=== PATIENT | male | born 1970 | race Caucasian/White ===

== ENCOUNTER 2019-04-12 09:46 | Inpatient (IN) | payer BC ==
[2019-04-12] MEDS ORDERED: DOCUSATE SODIUM 100 MG CAP PO (11:30)
[2019-04-12] MEDS ORDERED: ONDANSETRON 4 MG INJ IV (11:30)
[2019-04-12] MEDS ORDERED: VANCOMYCIN IV PER PHARMACY XX (11:30)
[2019-04-12] MEDS ORDERED: KETOROLAC 15 MG INJ IV (11:30)
[2019-04-12] MEDS ORDERED: NACL 0.9% 3 ML SYG IV (11:30)
[2019-04-12] MEDS ORDERED: ACETAMINOPHEN 325 MG TAB PO (11:30)
[2019-04-12] MEDS: CEFEPIME 1GM/50 ML (PMX) 50 ML IVPB ×2 (13:01→20:54)
[2019-04-12] MEDS: SOD CHLORIDE 0.9% 1,000 ML IV (13:02)
[2019-04-12] MEDS: VANCOMYCIN HCL 2 GM in SOD CHLORIDE 0.9% 500 ML IVPB (14:01)
[2019-04-12 16:09] LABS: ADD UMIC NO; UR ASCORBIC ACID NEGATIVE (NEGATIVE); UR BILIRUBIN (Dip) NEGATIVE (NEGATIVE); UR BLOOD (Dip) NEGATIVE (NEGATIVE); UR CLARITY CLEAR (CLEAR); UR COLOR YELLOW (YELLOW); UR GLUCOSE (Dip) NEGATIVE (NEGATIVE); UR KETONES (Dip) NEGATIVE (NEGATIVE); UR LEUKOCYTE ESTERASE (Dip) NEGATIVE Leu/ul (NEGATIVE); UR NITRITE (Dip) NEGATIVE (NEGATIVE); UR SPECIFIC GRAVITY (Dip) 1.018 (1.003-1.030); UR TOTAL PROTEIN (Dip) NEGATIVE (NEGATIVE); UR UROBILINOGEN (Dip) NEGATIVE (NEGATIVE)
[2019-04-12] MEDS: FAMOTIDINE 20 MG TAB PO (20:54)
[2019-04-12] MEDS: TAMSULOSIN (SR) 0.4 MG CAP PO (20:54)
[2019-04-13] MEDS: SOD CHLORIDE 0.9% 1,000 ML IV ×2 (01:25→12:46)
[2019-04-13] MEDS: VANCOMYCIN HCL 1.25 GM in SOD CHLORIDE 0.9% 250 ML IVPB ×2 (02:06→14:08)
[2019-04-13 06:21] LABS: BLOOD UREA NITROGEN 16 mg/dl (7-20)
[2019-04-13 06:21] LABS: CREATININE 0.92 mg/dl (0.61-1.24)
[2019-04-13] MEDS: CEFEPIME 1GM/50 ML (PMX) 50 ML IVPB ×2 (08:58→20:38)
[2019-04-13] MEDS: FAMOTIDINE 20 MG TAB PO ×2 (08:58→20:38)
[2019-04-13] MEDS: ENOXAPARIN 40 MG/0.4 ML SYG SC (10:56)
[2019-04-13] MEDS: TAMSULOSIN (SR) 0.4 MG CAP PO (20:38)
[2019-04-14 02:04] LABS: VANCOMYCIN,TROUGH 11.8 ug/ml (10.0-20.0)
[2019-04-14] MEDS: VANCOMYCIN HCL 1.25 GM in SOD CHLORIDE 0.9% 250 ML IVPB ×2 (02:48→15:14)
[2019-04-14] MEDS: SOD CHLORIDE 0.9% 1,000 ML IV ×3 (06:01→20:19)
[2019-04-14 06:07] LABS: ADD MAN DIFF? NO
[2019-04-14 06:18] LABS: WHITE BLOOD COUNT 6.2 10^3/ul (4.8-10.8)
[2019-04-14 06:18] LABS: BASOPHILS % 0.6 % (0.0-2.0); EOSINOPHILS # 0.2 10^3/ul (0.0-0.5); EOSINOPHILS % 3.9 % (0.0-7.0); HEMATOCRIT 41.6 % (42.0-52.0); HEMOGLOBIN 13.9 g/dl (14.0-18.0); LYMPHOCYTES # 2.7 10^3/ul (0.8-2.9); LYMPHOCYTES % 44.1 % (15.0-51.0); MEAN CORPUSCULAR HEMOGLOBIN 29.6 pg (29.0-33.0); MEAN CORPUSCULAR HGB CONC 33.4 g/dl (32.0-37.0); MEAN CORPUSCULAR VOLUME 88.7 fl (82.0-101.0); MEAN PLATELET VOLUME 9.1 fl (7.4-10.4); MONOCYTE # 0.5 10^3/ul (0.3-0.9); MONOCYTES % 8.7 % (0.0-11.0); NEUTROPHIL # 2.6 10^3/ul (1.6-7.5); NEUTROPHILS % 41.7 % (39.0-77.0); PLATELET COUNT 305 10^3/UL (140-415); RED BLOOD COUNT 4.69 10^6/ul (4.70-6.10); RED CELL DISTRIBUTION WIDTH 11.9 % (11.5-14.5)
[2019-04-14 06:59] LABS: ANION GAP 7 (5-13); BLOOD UREA NITROGEN 17 mg/dl (7-20); CALCIUM 8.8 mg/dl (8.4-10.2); CARBON DIOXIDE 28 mmol/L (21-31); CHLORIDE 107 mmol/L (97-110); CREATININE 0.93 mg/dl (0.61-1.24); Estimated GFR > 60 mL/min (>60); GLUCOSE 103 mg/dl (70-220); POTASSIUM 4.4 mmol/L (3.5-5.1); SODIUM 142 mmol/L (135-144)
[2019-04-14 07:00] LABS: PHOSPHORUS 5.1 mg/dl (2.5-4.9)
[2019-04-14 07:00] LABS: MAGNESIUM 1.9 mg/dl (1.7-2.5)
[2019-04-14] MEDS: FAMOTIDINE 20 MG TAB PO ×2 (09:30→20:25)
[2019-04-14] MEDS: CEFEPIME 1GM/50 ML (PMX) 50 ML IVPB (09:30)
[2019-04-14] MEDS: ENOXAPARIN 40 MG/0.4 ML SYG SC (09:31)
[2019-04-14] MEDS: CEFTRIAXONE 1 GM/50 ML (PMX) 50 ML IVPB (14:02)
[2019-04-14] MEDS: TAMSULOSIN (SR) 0.4 MG CAP PO (20:25)
[2019-04-15] MEDS: VANCOMYCIN HCL 1.25 GM in SOD CHLORIDE 0.9% 250 ML IVPB ×2 (02:17→14:46)
[2019-04-15 05:07] LABS: ADD MAN DIFF? NO
[2019-04-15 05:16] LABS: BASOPHIL # 0.1 10^3/ul (0.0-0.1); BASOPHILS % 0.7 % (0.0-2.0); EOSINOPHILS # 0.3 10^3/ul (0.0-0.5); EOSINOPHILS % 3.7 % (0.0-7.0); HEMATOCRIT 40.5 % (42.0-52.0); HEMOGLOBIN 13.6 g/dl (14.0-18.0); LYMPHOCYTES # 3.5 10^3/ul (0.8-2.9); LYMPHOCYTES % 46.4 % (15.0-51.0); MEAN CORPUSCULAR HGB CONC 33.6 g/dl (32.0-37.0); MEAN CORPUSCULAR VOLUME 89.2 fl (82.0-101.0); MONOCYTE # 0.5 10^3/ul (0.3-0.9); MONOCYTES % 6.7 % (0.0-11.0); NEUTROPHIL # 3.1 10^3/ul (1.6-7.5); NEUTROPHILS % 40.9 % (39.0-77.0); PLATELET COUNT 319 10^3/UL (140-415); RED BLOOD COUNT 4.54 10^6/ul (4.70-6.10); RED CELL DISTRIBUTION WIDTH 11.8 % (11.5-14.5)
[2019-04-15 05:16] LABS: WHITE BLOOD COUNT 7.6 10^3/ul (4.8-10.8)
[2019-04-15 05:42] LABS: ANION GAP 5 (5-13); BLOOD UREA NITROGEN 17 mg/dl (7-20); CALCIUM 8.9 mg/dl (8.4-10.2); CARBON DIOXIDE 30 mmol/L (21-31); CHLORIDE 107 mmol/L (97-110); CREATININE 1.03 mg/dl (0.61-1.24); Estimated GFR > 60 mL/min (>60); GLUCOSE 103 mg/dl (70-220); SODIUM 142 mmol/L (135-144)
[2019-04-15] MEDS: FAMOTIDINE 20 MG TAB PO (08:36)
[2019-04-15] MEDS: ENOXAPARIN 40 MG/0.4 ML SYG SC (08:37)
[2019-04-15] MEDS: CEFTRIAXONE 1 GM/50 ML (PMX) 50 ML IVPB (13:50)
== END 2019-04-15 17:20 | disposition home or self-care (01) | DRG 603 ==
LOC: 2NE 09:46
DX: L03.116 Cellulitis of left lower limb (principal); N40.1 Benign prostatic hyperplasia with lower urinary tract symptoms; R33.8 Other retention of urine; F79 Unspecified intellectual disabilities; Z91.81 History of falling; E66.9 Obesity, unspecified; Z68.35 Body mass index [BMI] 35.0-35.9, adult; E83.39 Other disorders of phosphorus metabolism; D50.9 Iron deficiency anemia, unspecified; S99.922A Unspecified injury of left foot, initial encounter; W18.30XA Fall on same level, unspecified, initial encounter; Y93.E3 Activity, vacuuming
CPT/HCPCS: 73620; 80048; 80202; 81003; 82565; 83735; 84100; 84520; 85025; 97110; 97161; 97530